=== PATIENT | female | born 1990 | race Caucasian/White ===

== ENCOUNTER 2021-10-12 14:45 | Emergency (ER) | payer OTHER ==
[~2021-10-12] VITALS: Ht 162.6 cm; Wt 59.0 kg
--- NOTE | 2021-10-12 16:58 | NUR ---
PT WAS EVALUATED BY DR BELL. PT WAS D/C'D TO HOME. D/C INSTRUCTIONS GIVEN TO THE PT.
[2021-10-12 16:59] VITALS: BP 122/63
== END 2021-10-12 17:00 | disposition home or self-care (01) ==
LOC: ER 14:49
DX: R05.9 Cough, unspecified (principal); Z20.822 Contact with and (suspected) exposure to COVID-19
CPT/HCPCS: 87426; 99283; U0003; A4663